=== PATIENT | female | born 2000 | race Caucasian/White ===

== ENCOUNTER → 2019-06-26 09:22 | Outpatient (BNVA) | payer SELFPAY | PROVIDERS: Family Provider Pediatrics Adolescent Medicine; PCP Pediatrics Adolescent Medicine; Visit Provider Nurse Practitioner | DX: F41.1 Generalized anxiety disorder (principal); G47.19 Other hypersomnia | CPT/HCPCS: 99214 ==

== ENCOUNTER → 2020-07-20 14:30 | Outpatient (BNVA) | payer BC, SELFPAY | PROVIDERS: Family Provider Pediatrics Adolescent Medicine; PCP Pediatrics Adolescent Medicine; Visit Provider Nurse Practitioner Women's Health | DX: Z11.3 Encounter for screening for infections with a predominantly sexual mode of transmission; Z01.419 Encounter for gynecological examination (general) (routine) without abnormal findings | CPT/HCPCS: 87491; 87591; 87661; 88175 ==

== ENCOUNTER 2020-12-12 14:36 | Emergency (ER) | payer BC, SELFPAY ==
[2020-12-12 15:10] VITALS: BP 126/82; PULSE 76; RESP 15; TEMP 36.7; O2SAT 97; BMI 37.8
[2020-12-12 15:37] VITALS: BP 127/80; PULSE 80; RESP 16; O2SAT 99
[2020-12-12] MEDS: CELEcoxib 200 mg Capsule 400 MG PO (15:43)
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
[2020-12-12] MEDS: silver sulfadiazine cream 1% 50 gm 1 APPLIC TOPICAL (17:06)
== END 2020-12-12 17:07 | disposition home or self-care (01) ==
PROVIDERS: Emergency Provider Nurse Practitioner Family
DX: T23.242A Burn of second degree of multiple left fingers (nail), including thumb, initial encounter (principal); X08.8XXA Exposure to other specified smoke, fire and flames, initial encounter
CPT/HCPCS: 99282

== ENCOUNTER → 2021-07-21 15:53 | Outpatient (BNVA) | payer BC, SELFPAY | PROVIDERS: Visit Provider Nurse Practitioner Women's Health | DX: Z11.3 Encounter for screening for infections with a predominantly sexual mode of transmission (principal) | CPT/HCPCS: 86592; 86803; 87340; 87491; 87591; 87661; 87806 ==